=== PATIENT | male | born 1955 | race Caucasian/White ===

== ENCOUNTER 2017-10-29 21:02 | Emergency (ER) | payer SELFPAY ==
[~2017-10-29] VITALS: Ht 182.9 cm; Wt 83.0 kg
[2017-10-29 21:25] VITALS: BP 0/0
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
== END 2017-10-29 22:53 ==
LOC: EMR 22:40
DX: R45.1 Restlessness and agitation (principal)
CPT/HCPCS: 99283